=== PATIENT | female | born 1950 | race Two or more races ===

== ENCOUNTER 2020-08-12 18:03 | Emergency (ER) | payer MEDICARE, OTHER ==
[~2020-08-12] VITALS: Ht 154.9 cm; Wt 114.8 kg
[2020-08-12] MEDS ORDERED: cloNIDine HCL 0.1 MG TAB PO ONE (20:15)
[2020-08-13 01:24] VITALS: BP 187/100
[2020-08-13] MEDS ORDERED: AMOXICILLIN/CLAVUL 875 MG TAB PO ONE (02:15)
[2020-08-13] MEDS ORDERED: TETANUS-DIPTH-ACEL PERTUSSIS 0.5ML SYR Tdap IM ONE (02:15)
[2020-08-13] MEDS ORDERED: LIDOCAINE 1% HCL (LOCAL ANESTH.) INJ 20ML MDV ONE (02:29)
== END 2020-08-13 03:23 | disposition home or self-care (01) ==
LOC: ER 18:05
DX: S61.112A Laceration without foreign body of left thumb with damage to nail, initial encounter (principal); R03.0 Elevated blood-pressure reading, without diagnosis of hypertension; E78.5 Hyperlipidemia, unspecified; Z90.49 Acquired absence of other specified parts of digestive tract; Z90.710 Acquired absence of both cervix and uterus; W54.0XXA Bitten by dog, initial encounter; Y93.89 Activity, other specified; Y92.89 Other specified places as the place of occurrence of the external cause; Y99.8 Other external cause status
CPT/HCPCS: 12002; 73110; 73130; 90471; 90715; 99284; J2001